=== PATIENT | female | born 1945 | race Two or more races ===

== ENCOUNTER 2024-07-21 21:52 | Emergency (ER) | payer OTHER ==
[~2024-07-21] VITALS: Ht 160 cm; Wt 85.9 kg
[2024-07-21 23:03] LABS: Urine Bacteria None Seen /hpf (None Seen)
[2024-07-21 23:05] LABS: Basophils # (auto) 0.1 10 ^3/uL (0-0.2); Basophils % (auto) 0.6 % (0.0-2.0); Eosinophils # (auto) 0.1 10 ^3/uL (0-0.8); Eosinophils % (auto) 0.6 % (0.0-7.0); Hematocrit 44.4 % (36.0-46.0); Hemoglobin 14.3 g/dL (12.2-16.2); Lymphocytes # (auto) 1.3 10 ^3/uL (0.4-5.4); Lymphocytes % (auto) 8.3 % (10.0-50.0); Mean Corpuscular Hemoglobin 26.2 pg (28.0-32.0); Mean Corpuscular Hgb Conc. 32.2 g/dL (32.0-36.0); Mean Corpuscular Volume 81.5 fL (80.0-100.0); Monocytes # (auto) 0.6 10 ^3/uL (0-1.3); Monocytes % (auto) 4.2 % (0.0-12.0); Neutrophils # (auto) 13.1 10 ^3/uL (1.6-8.6); Neutrophils % (auto) 86.3 % (37.0-80.0); Nucleated Red Blood Cells % 0.1 %; Platelet Count (auto) 280 10^3/uL (140-450); Red Blood Cells 5.45 10^6/uL (4.0-5.20); Red Cell Distribution Width 15.6 % (11.8-14.3); White Blood Cell 15.2 10^3/uL (4.4-10.8)
[2024-07-21 23:08] LABS: Urine Blood Negative /uL (Negative); Urine Clarity Clear (Clear); Urine Color Light-Yellow (Yellow); Urine Mucus FEW (None Seen); Urine Protein, UAD Negative (Negative); Urine Specific Gravity 1.013 (1.001-1.035); Urine Squamous Epithelial Cell None Seen /hpf (<5); Urine Urobilinogen Normal (Negative); Urine WBC < 1 /HPF (0-5); Urine pH 5.5 (5.0-9.0)
[2024-07-21 23:24] LABS: Alanine Aminotransferase 29 U/L (7-40); Alkaline Phosphatase 66 U/L (46-116); Anion Gap 9 (5-15); Aspartate Aminotransferase 19 U/L (13-40); BUN/Creatinine Ratio 13.6 (10.0-20.0); Blood Urea Nitrogen 14 mg/dL (9-23); Carbon Dioxide 27 mmol/L (20-31); Lipase 34 U/L (12-53); Sodium 144 mmol/L (136-145)
[2024-07-21 23:25] LABS: Bilirubin, Total 0.5 mg/dL (0.2-1.0)
[2024-07-21 23:49] LABS: Albumin 4.8 g/dL (3.2-4.8); Calcium 10.7 mg/dL (8.7-10.4); Chloride 108 mmol/L (98-107); Glucose 129 mg/dL (74-106)
--- NOTE | 2024-07-22 00:34 | DVH ---
Exam: CT CT AB PEL WO CON-NO ORAL OR IV History: Diffuse abdominal pain Comparison Study: None Technique: Multidetector spiral CT of the abdomen was performed from lung bases to pubic symphysis. Imaging was performed without IV contrast. Axial, coronal and sagittal multiplanar reformats were ob tained from the axial data set by the technologist. Radiation Dose : 1. Abdomen/Pelvis: CTDIvol mGy, DLP mGy*cm. Findings: Evaluation of solid organs is limited due to lack of intravenous contrast use. Lung Bases: No abnormality demonstrated. Liver: Liver is normal in size. No focal lesions. Gallbladder and Biliary Tree: No abnormality demonstrated. Spleen: No abnormality demonstrated. Pancreas: No abnormality demonstrated. Adrenal Glands: No abnormality demonstrated. Kidneys: No abnormality demonstrated. No evidence of renal calculus or hydroureteronephrosis. Bladder: Non distended. Bowel: Stomach is considerably distended. There are mildly dilated loops of proximal small bowel/jeju num. Distal small bowel loops are decompressed. Large bowel appears unremarkable. Appendix appears un remarkable. Ascites: Absent Lymphadenopathy: No evidence of lymphadenopathy. Abdominal Wall and Mesentery: Unremarkable. Vasculature: Unremarkable. Pelvic Organs: Unremarkable. Musculoskeletal: No aggressive bony lesions or fracture. Lumbar spondylosis. IMPRESSION: Gonzalo distension of the stomach and mildly dilated loops of proximal small bowel/jejunum consistent wi th partial proximal small bowel obstruction. Radiation optimization: All CT scans at this facility use at least one of these dose optimization fabiano hniques: automated exposure control mA and/or kV adjustment per patient size (includes targeted exam s where dose is matched to clinical indication) or iterative reconstruction.
--- NOTE | 2024-07-22 01:57 | ED.PDOC ---
GI ASSESSMENT HPI Comments This patient is a very pleasant but severely morbidly obese 78-year-old female who arrives the ED today with complaints of diffuse abdominal pain concerns with nausea and vomiting for the past three days. Patient denies any new food sources a recent travel. Patient states the symptoms came on has been relatively unrelenting. Patient denies any history of intra-abdominal concerns. Vital signs were stable on arrival. Chief Complaint: Abdominal Pain Time Seen by MD: 22:31 Reviewed Notes: Nurses Notes Information Source: Patient Mode of Arrival: Ambulatory Timing: Days Duration: Since onset Prehospital treatment: None Quality: Aching, Cramping, Sharp Vomitus: Bilious, Food Particles, Soft, Watery Severity: Moderate Recent: None Recent Hx of: None Pain Location: Diffuse, Epigastric Modifying Factors: Food Associated sign and symptoms: Nausea, Vomiting, Abdominal Pain Past Medical History PAST MEDICAL HISTORY: Denies Surgical History: Denies all surgeries QUALITATIVE EXECUTIVE RESEARCHER History: No Pertinent QUALITATIVE EXECUTIVE RESEARCHER History Family History Family History: Reviewed,noncontributory to illness, No family hx of Cancer, No family hx of DM, No family hx of Heart louis, No family hx of HTN, No family hx ofKidney louis, No family hx of Liver louis, No family hx of Lung louis, No family hx of Stroke Social History Smoker: Non-Smoker Alcohol: Denies ETOH Use Drugs: Denies Drug Use Lives In: Home Constitutional: denies: chills, diaphoresis, fatigue, fever, malaise, sweats, weakness, others EENTM: denies: blurred vision, double vision, ear bleeding, ear discharge, ear drainage, ear pain, ear ringing, eye pain, eye redness, hearing loss, mouth pain, mouth swelling, nasal discharge, nose bleeding, nose congestion, nose pain, photophobia, tearing, throat pain, throat swelling, voice changes, others Respiratory: denies: cough, hemoptysis, orthopnea, SOB at rest, shortness of breath, SOB with excertion, stridor, wheezing, others Cardiovascular: denies: chest pain, dizzy spells, diaphoresis, Dyspnea on exertion, edema, irregular heart beat, left arm pain, lightheadedness, palpitations, PND, syncope, others Gastrointestinal: reports: abdominal pain, nausea, vomiting; denies: abdomen distended, blood streaked bowels, constipated, diarrhea, dysphagia, difficulty swallowing, hematemesis, melena, poor appetite, poor fluid intake, rectal bleeding, rectal pain, others Genitourinary: denies: abnormal vagina bleeding, burning, dyspareunia, dysuria, flank pain, frequency, hematuria, incontinence, pain, , vagina discharge, urgency, others Neurological: denies: dizziness, fainting, headache, left sided numbness, left sided weakness, numbness, paresthesia, pre-existing deficit, right sided numbness, right sided weakness, seizure, speech problems, tingling, tremors, weakness, others Musculoskeletal: denies: back pain, gout, joint pain, joint swelling, muscle pain, muscle stiffness, neck pain, others Integumetry: denies: bruises, change in color, change in hair/nails, dryness, laceration, lesions, lumps, rash, wounds, others Allergic/Immunocompromised: denies: Difficulty Healing, Frequent Infections, Hives, Itching, others Hematologic/Lymphatic: denies: anemia, blood clots, easy bleeding, easy br uising, swollen glands, others Endocrine: denies: excessive hunger, excessive sweating, excessive thirst, excessive urination, flushing, intolerance to cold, intolerance to heat, unexplained weight gain, unexplained weight loss, others Psychiatric: denies: anxiety, bipolar disorder, depression, hopeless, panic disorder, schizophrenia, sleepless, suicidal, others Physical Exam General Appearance: Moderate Distress (Due to abdominal pain concerns.), Obese HEENT: Normal ENT Inspection, Pharynx Normal, TMs Normal Neck: Full Range of Motion, Non-Tender, Normal, Normal Inspection Respiratory: Chest Non-Tender, Lungs Clear, No Accessory Muscle Use, No Respiratory Distress, Normal Breath Sounds Cardiovascular: No Edema, No JVD, No Murmur, No Gallop, Normal Peripheral Pulses, Regular Rate/Rhythm Breast Exam: Deferred Gastrointestinal: Other (Diffuse epigastric tenderness to palpation bilaterally extending towards the umbilicus. Difficult to assess due to body habitus. No signs of trauma. No pulsatile masses.) Genitalia: Deferred Pelvic: Deferred Rectal: Deferred Extremities: No calf tenderness, Normal inspection, Non-tender Neurologic: Alert, No Motor Deficits, Normal Affect, Normal Mood, No Sensory Deficits Cerebellar Function: Normal Reflexes: Normal Skin: Dry, Normal Color, Warm Lymphatic: No Adenopathy Was a procedure done? Was a procedure done?: No GI differential Dx Differential Diagnosis: Appendicitis, Bowel Obstruction, Cholangitis, Cholecystitis, Gastritis/PUD, Gastroenteritis, Pancreatitis, UTI X-Ray, Labs, Meds, VS Vital Signs Date Time Temp Pulse Resp B/P (MAP) Pulse Ox O2 Delivery O2 Flow Rate FiO2 07/22/24 03:55 76 18 94 Room Air 07/22/24 03:55 98.0 74 18 116/52 (73) 94 98.0 07/21/24 22:30 97.9 99 18 148/86 (106) 95 Lab Test 07/22/24 00:27 07/21/24 23:01 07/21/24 22:54 Range/Units Troponin I High Sensitivity < 3 L < 3 L </=34 ng/L Urine Color Light-yellow Yellow Urine Clarity Clear Clear Urine pH 5.5 5.0-9.0 Urine Specific Dexter 1.013 1.001-1.035 Urine Protein Negative Negative Urine Ketones Negative Negative Urine Blood Negative Negative /uL Urine Nitrite Negative Negative Urine Bilirubin Negative Negative Urine Urobilinogen Normal Negative mg/dL Urine Leukocyte Esterase Negative Negative /uL Urine RBC <1 0 - 4 /hpf Urine Microscopic WBC < 1 0-5 /HPF Urine Squamous Epithelial Cells None seen <5 /hpf Urine Bacteria None seen None Seen /hpf Urine Mucus Few None Seen Urine Glucose Normal Normal mg/dL White Blood Count 15.2 H 4.4-10.8 10^3/uL Red Blood Count 5.45 H 4.0-5.20 10^6/uL Hemoglobin 14.3 12.2-16.2 g/dL Hematocrit 44.4 36.0-46.0 % Mean Corpuscular Volume 81.5 80.0-100.0 fL Mean Corpuscular Hemoglobin 26.2 L 28.0-32.0 pg Mean Corpuscular Hemoglobin Concent 32.2 32.0-36.0 g/dL Red Cell Distribution Width 15.6 H 11.8-14.3 % Platelet Count 280 140-450 10^3/uL Mean Platelet Volume 7.1 6.9-10.8 fL Neutrophils (%) (Auto) 86.3 H 37.0-80.0 % Lymphocytes (%) (Auto) 8.3 L 10.0-50.0 % Monocytes (%) (Auto) 4.2 0.0-12.0 % Eosinophils (%) (Auto) 0.6 0.0-7.0 % Basophils (%) (Auto) 0.6 0.0-2.0 % Neutrophils # (Auto) 13.1 H 1.6-8.6 10 ^3/uL Lymphocytes # (Auto) 1.3 0.4-5.4 10 ^3/uL Monocytes # (Auto) 0.6 0-1.3 10 ^3/uL Eosinophils # (Auto) 0.1 0-0.8 10 ^3/uL Basophils # (Auto) 0.1 0-0.2 10 ^3/uL Nucleated Red Blood Cells 0.1 % Sodium Level 144 136-145 mmol/L Potassium Level 4.0 3.5-5.1 mmol/L Chloride Level 108 H 98-107 mmol/L Carbon Dioxide Level 27 20-31 mmol/L Anion Gap 9 5-15 Blood Urea Nitrogen 14 9-23 mg/dL Creatinine 1.03 H 0.550-1.02 mg/dL Glomerular Filtration Rate Calc 55 >90 mL/min BUN/Creatinine Ratio 13.6 10.0-20.0 Serum Glucose 129 H 74-106 mg/dL Calcium Level 10.7 H 8.7-10.4 mg/dL Total Bilirubin 0.5 0.2-1.0 mg/dL Aspartate Amino Transferase (AST) 19 13-40 U/L Alanine Aminotransferase (ALT) 29 7-40 U/L Alkaline Phosphatase 66 46-116 U/L B-Type Natriuretic Peptide 32.57 0-100 pg/mL Total Protein 7.0 5.7-8.2 g/dL Albumin 4.8 3.2-4.8 g/dL Lipase 34 12-53 U/L Current Medications Medications (Trade) Dose Ordered Sig/Moo Route Start Time Stop Time Status Last Admin Al Hydrox/Mg Hydrox/Simethicone (Maalox Plus) 30 ml ONCE ONCE PO 07/21/24 22:45 07/21/24 22:46 DC 07/22/24 03:48 Lidocaine HCl (Xylocaine 2% Viscous) 3 ml ONCE ONCE PO 07/21/24 22:45 07/21/24 22:46 DC 07/22/24 03:48 Dicyclomine HCl (Bentyl Injection) 10 mg ONCE ONCE IM 07/21/24 22:45 07/21/24 22:46 DC 07/22/24 03:48 Sodium Chloride 2,000 ml @ 1,000 mls/hr Q2H ONCE IV 07/22/24 04:00 07/22/24 05:59 07/22/24 04:28 Piperacillin Sod/ Tazobactam Sod 100 ml @ 100 mls/hr ONCE ONCE IV 07/22/24 04:00 07/22/24 04:59 07/22/24 04:30 [place] [id number] Ph: [phone] DIAGNOSTIC IMAGING Diagnostic Imaging Report : [id number] Signed PATIENT: FARZANA MCCOY ACCT: [id number] UNIT: [id number] : 1945 LOC: ER ROOM / BED: / AGE / SEX: 78 / F ADM STATUS: REG ER SERVICE 37 ORDERING PHYSICIAN: KIMBERLY ALEXANDER PAC PROCEDURE(s): ABPL - CT AB PEL WO CON-NO ORAL OR IV REASON: Diffuse abdominal pain ORDER NUMBER(s): [id number], ACCESSION NUMBER(s): [id number] Exam: CT CT AB PEL WO CON-NO ORAL OR IV History: Diffuse abdominal pain Comparison Study: None Technique: Multidetector spiral CT of the abdomen was performed from lung bases to pubic symphysis. Imaging was performed without IV contrast. Axial, coronal and sagittal multiplanar reformats were obtained from the axial data set by the technologist. Radiation Dose : 1. Abdomen/Pelvis: CTDIvol mGy, DLP mGy*cm. Findings: Evaluation of solid organs is limited due to lack of intravenous contrast use. Lung Bases: No abnormality demonstrated. Liver: Liver is normal in size. No focal lesions. Gallbladder and Biliary Tree: No abnormality demonstrated. Spleen: No abnormality demonstrated. Pancreas: No abnormality demonstrated. Adrenal Glands: No abnormality demonstrated. Kidneys: No abnormality demonstrated. No evidence of renal calculus or hydroureteronephrosis. Bladder: Non distended. Bowel: Stomach is considerably distended. There are mildly dilated loops of proximal small bowel/jejunum. Distal small bowel loops are decompressed. Large bowel appears unremarkable. Appendix appears unremarkable. Ascites: Absent Lymphadenopathy: No evidence of lymphadenopathy. Abdominal Wall and Mesentery: Unremarkable. Vasculature: Unremarkable. Pelvic Organs: Unremarkable. Musculoskeletal: No aggressive bony lesions or fracture. Lumbar spondylosis. IMPRESSION: Kimberly distension of the stomach and mildly dilated loops of proximal small bowel/jejunum consistent with partial proximal small bowel obstruction. Radiation optimization: All CT scans at this facility use at least one of these dose optimization techniques: automated exposure control mA and/or kV adjustment per patient size (includes targeted exams where dose is matched to clinical indication) or iterative reconstruction. ATED BY: NOBLE HENNESSY MD DICTATED DATE/TIME: 07/22/2431 SIGNED BY: NOBLE HENNESSY MD SIGNED DATE/TIME: 07/22/2431 CC: White blood cell count is 15.2. Lactic acid is pending. . NG tube was ordered IV fluid was ordered and Zosyn added to the medical regimen. The patient will be transferred to [facility] by Dr. Burr. Authorization #[id number] X-Ray, Labs, Meds, VS Comment All studies performed the ED were evaluated by me personally. Patient revealed a mild elevated white blood cell count, but more concerning was the small bowel obstruction that was noted on the CT of the abdomen. An NG tube has been placed and patient will be admitted for management of her SBO. Advised patient of the need for admission and the patient agreed to be admitted. Time of 1ST Reevaluation: 01:56 Reevaluation 1ST: Improved Consultation: PCP Patient Education/Counseling: Diagnosis, Treatment Family Education/Counseling: Diagnosis, Treatment Departure 1 Departure Time of Disposition: 01:56 Impression: Primary Impression: Small bowel obstruction Additional Impression: Leukocytosis Qualified Codes: D72.829 - Elevated white blood cell count, unspecified Disposition: 02 SHORT TERM HOSPITAL Condition: Stable Discharged With: Self Critical Care Note Critical Care Time?: No Stability Stability form required: No Heart Score Heart Score: Heart Score Response (Comments) Value History Slightly Suspicious 0 EKG Repolarization Disturb 1 Age >65 2 Risk Factors 1 or 2 risk factors 1 Troponin Normal limit 0 Total 4 KIMBERLY ALEXANDER PAC Jul 22, 2024 01:57 NIELS FINLEY MD Jul 22, 2024 04:36
[2024-07-22] MEDS: LIDOCAINE VISCOUS 2% 15ML UD PO ONE (03:48)
[2024-07-22] MEDS: MAALOX PLUS or MAALOX 30 ML PO ONE (03:48)
[2024-07-22] MEDS: DICYCLOMINE HCL (10MG/ML) 2 ML AMPULE IM ONE (03:48)
[2024-07-22] MEDS: SODIUM CHLORIDE 0.9% 2,000 ML IV ONE (04:28)
[2024-07-22] MEDS: PIPERACILLIN-TAZOB 3.375GM 100 ML IV ONE (04:30)
[2024-07-22 06:00] VITALS: PULSE 72; RESP 14; O2SAT 95
[2024-07-22] MEDS: ONDANSETRON HCL 4 MG/2 ML VIAL IV ONE (06:07)
[2024-07-22] MEDS: HYDROMORPHONE HCL 1 MG/ML INJ IV ONE (06:08)
[2024-07-22 10:37] VITALS: BP 124/51; PULSE 67; RESP 18; TEMP 97.8; O2SAT 95
== END 2024-07-22 10:56 | disposition short-term general hospital (02) ==
LOC: ER 21:52
DX: K56.609 Unspecified intestinal obstruction, unspecified as to partial versus complete obstruction (principal); D72.829 Elevated white blood cell count, unspecified; E66.01 Morbid (severe) obesity due to excess calories; Z68.33 Body mass index [BMI] 33.0-33.9, adult
CPT/HCPCS: 36415; 74176; 80053; 81001; 83605; 83690; 83880; 84484; 85025; 96365; 96372; 96375; 99285; J0500; J1170; J2405; J2543; J7030